=== PATIENT | male | born 1960 | race Caucasian/White ===

== ENCOUNTER 2017-07-14 20:20 | Emergency (ER) | payer OTHER ==
[2017-07-14 23:35] VITALS: BP 142/93
== END 2017-07-14 23:39 | disposition home or self-care (01) ==
LOC: ED 20:20
DX: T60.91XA Toxic effect of unspecified pesticide, accidental (unintentional), initial encounter (principal); Y92.89 Other specified places as the place of occurrence of the external cause; I10 Essential (primary) hypertension